=== PATIENT | female | born 1930 | race Caucasian/White ===

== ENCOUNTER 2017-09-11 10:11 | Inpatient (IN) | payer MEDICARE, BC, MEDICAID ==
[~2017-09-11] VITALS: Ht 162.6 cm; Wt 54.4 kg
[2017-09-11] VITALS (13 sets, daily range): BP systolic 89–125; BP diastolic 46–73
--- NOTE | 2017-09-11 10:23 | ER Report ---
History and Physical Time Seen By MD: 10:19 HPI/ROS CHIEF COMPLAINT: fall, left hip pain HISTORY OF PRESENT ILLNESS: This is an 87 year old female from [facility]. A staff member accidentally ran into her, knocking her over. Fell onto left side. Having left sided hip and pelvic pain. Denies any other pain. Says she can feel her leg and move her foot and toes. Movement of the hip/leg causes more pain. She denies any head, neck or back pain. She is not short of breath. She has no chest pain. She has no pain in the upper extremities. REVIEW OF SYSTEMS: Respiratory: No cough, no dyspnea. Cardiovascular: No chest pain, no palpitations. Gastrointestinal: No vomiting, no abdominal pain. Genitourinary: No burning or pain with urination. Musculoskeletal: As above. Allergies: Coded Allergies: Penicillins (Verified Allergy, Severe, 09/11/17) Sulfa (Sulfonamide Antibiotics) (Verified Allergy, Severe, 09/11/17) simvastatin (Verified Allergy, Severe, 09/11/17) Home Meds Reported Medications Magnesium Hydroxide (MILK OF MAGNESIA) 400 Mg/5 Ml Oral.susp, 30 ML PO PRN, BOTTLE NOT TO EXCEED 60 ML/DAY 09/11/17 Alprazolam (XANAX) 0.5 Mg Tablet, 1 TAB PO QPM, TAB 09/11/17 Gabapentin (GABAPENTIN) 300 Mg Capsule, 300 MG PO BID, CAPSULE 09/11/17 Acetaminophen (TYLENOL) 325 Mg Tablet, 2 TAB PO BID Y for PAIN, TAB 09/11/17 Levothyroxine Sodium (LEVOTHYROXINE SODIUM) 100 Mcg Tablet, 100 MCG PO QDAY, TAB 09/11/17 Aspirin (ASPIR 81) 81 Mg Tablet.dr, 81 MG PO QDAY, TAB 09/11/17 Past Medical/Surgical History DO NOT RESUSCITATE, DO NOT INTUBATE Past history of Type 2 diabetes, metabolic syndrome, hyperlipidemia, peripheral vascular disease, hypothyroidism, gout, neuropathy, dementia Reviewed Nurses Notes: Yes Smoking Status: Former Smoker Constitutional Vital Sign - Last 24 Hours 09/11/17 09/11/17 09/11/17 09/11/17 10:19 10:26 10:26 10:30 Temp 98.0 Pulse 64 64 Resp 18 B/P (MAP) 145/72 (96) 145/72 110/59 (76) Pulse Ox 95 95 O2 Delivery Nasal Cannula 09/11/17 09/11/17 09/11/17 09/11/17 10:41 10:56 11:00 11:11 Pulse 60 60 56 B/P (MAP) 121/74 (90) Pulse Ox 93 92 93 09/11/17 09/11/17 09/11/17 09/11/17 11:16 11:30 11:31 11:36 Pulse 61 59 64 B/P (MAP) 110/64 (79) Pulse Ox 91 91 92 09/11/17 11:51 Pulse 55 Pulse Ox 92 Physical Exam General Appearance: The patient is alert. No acute distress. Non-toxic in appearance. Eyes: Pupils are equal, round. Reactive to light. No pallor, injection or icterus. Extraocular movements are intact. ENT: Mucous membranes are moist. Normal oral mucosa. Posterior oropharynx is normal. Neck: Supple and non tender. Respiratory: Lungs are clear to auscultation. Cardiovascular: Regular rate and rhythm. No murmurs, gallops or rubs. Normal capillary refill. Gastrointestinal: Abdomen is soft and non tender. Nondistended. Neurological: Alert and oriented x3. No focal neurologic deficits, normal sensation in the left leg. Can move the toes and foot. Trying to move the hip causes pain. Skin: Warm and dry. No rashes. Musculoskeletal: Tender to palpation over the left hip anteriorly, laterally and posteriorly. T-pod pelvic binder in place. DIFFERENTIAL DIAGNOSIS: After history and physical exam, differential diagnosis was considered for an 87 year old female with fall, left hip pain and concern for hip fracture. Medical Decision Making Data Points Result Diagram: 09/11/17 1015 09/11/17 1015 Laboratory Hematology Test 09/11/17 10:15 Red Blood Count 5.09 M/uL (4.17-5.56) Mean Corpuscular Volume 92.9 fL (80.0-96.0) Mean Corpuscular Hemoglobin 31.4 pg (26.0-33.0) Mean Corpuscular Hemoglobin Concent 33.8 g/dL (32.0-36.0) Red Cell Distribution Width 13.7 % (11.5-14.5) Mean Platelet Volume 8.5 fL (7.2-11.1) Neutrophils (%) (Auto) 70.1 % (39.4-72.5) Lymphocytes (%) (Auto) 21.7 % (17.6-49.6) Monocytes (%) (Auto) 7.2 % (4.1-12.4) Eosinophils (%) (Auto) 0.6 % (0.4-6.7) Basophils (%) (Auto) 0.4 % (0.3-1.4) Nucleated RBC Relative Count (auto) 0.0 /100WBC Neutrophils # (Auto) 5.1 K/uL (2.0-7.4) Lymphocytes # (Auto) 1.6 K/uL (1.3-3.6) Monocytes # (Auto) 0.5 K/uL (0.3-1.0) Eosinophils # (Auto) 0.0 K/uL (0.0-0.5) Basophils # (Auto) 0.0 K/uL (0.0-0.1) Nucleated RBC Absolute Count (auto) 0.00 K/uL Sodium Level 136 mmol/L (137-145) Potassium Level 4.2 mmol/L (3.5-5.0) Chloride Level 103 mmol/L (98-107) Carbon Dioxide Level 23 mmol/L (22-31) Blood Urea Nitrogen 12 mg/dl (7-18) Creatinine 0.70 mg/dl (0.52-1.04) Glomerular Filtration Rate Calc > 60.0 Random Glucose 175 mg/dl (75-110) Calcium Level 9.4 mg/dl (8.4-10.2) Total Bilirubin 0.5 mg/dl (0.2-1.3) Aspartate Amino Transf (AST/SGOT) 28 U/L (0-35) Alanine Aminotransferase (ALT/SGPT) 29 U/L (0-56) Alkaline Phosphatase 55 U/L (0-126) Total Protein 6.9 gm/dl (6.3-8.2) Albumin 3.6 g/dl (3.5-5.0) Chemistry Test 09/11/17 10:15 White Blood Count 7.3 k/uL (4.5-11.0) Red Blood Count 5.09 M/uL (4.17-5.56) Hemoglobin 16.0 g/dL (12.0-16.0) Hematocrit 47.3 % (34.0-47.0) Mean Corpuscular Volume 92.9 fL (80.0-96.0) Mean Corpuscular Hemoglobin 31.4 pg (26.0-33.0) Mean Corpuscular Hemoglobin Concent 33.8 g/dL (32.0-36.0) Red Cell Distribution Width 13.7 % (11.5-14.5) Platelet Count 197 K/uL (150-450) Mean Platelet Volume 8.5 fL (7.2-11.1) Neutrophils (%) (Auto) 70.1 % (39.4-72.5) Lymphocytes (%) (Auto) 21.7 % (17.6-49.6) Monocytes (%) (Auto) 7.2 % (4.1-12.4) Eosinophils (%) (Auto) 0.6 % (0.4-6.7) Basophils (%) (Auto) 0.4 % (0.3-1.4) Nucleated RBC Relative Count (auto) 0.0 /100WBC Neutrophils # (Auto) 5.1 K/uL (2.0-7.4) Lymphocytes # (Auto) 1.6 K/uL (1.3-3.6) Monocytes # (Auto) 0.5 K/uL (0.3-1.0) Eosinophils # (Auto) 0.0 K/uL (0.0-0.5) Basophils # (Auto) 0.0 K/uL (0.0-0.1) Nucleated RBC Absolute Count (auto) 0.00 K/uL Glomerular Filtration Rate Calc > 60.0 Calcium Level 9.4 mg/dl (8.4-10.2) Total Bilirubin 0.5 mg/dl (0.2-1.3) Aspartate Amino Transf (AST/SGOT) 28 U/L (0-35) Alanine Aminotransferase (ALT/SGPT) 29 U/L (0-56) Alkaline Phosphatase 55 U/L (0-126) Total Protein 6.9 gm/dl (6.3-8.2) Albumin 3.6 g/dl (3.5-5.0) EKG/Imaging EKG Interpretation 12 lead EKG: Rhythm: Bradycardia, first-degree AV block [place]: Left axis deviation, left atrial enlargement QRS: Low voltage throughout ST segments: No ST elevation or depression. Normal appearing T waves. Imaging EXAMINATION: Pelvis radiograph single view HISTORY: Fall, left hip and pelvis pain. COMPARISON: None. FINDINGS: A single AP supine view of the pelvis is obtained. Bones: Bony structures are osteopenic. There is an acute, impacted fracture of the left mid femoral neck. Degenerative changes of the lumbar spine. Joint spaces: Negative. Hardware: None. Alignment: Normal. Soft tissues: Mild atherosclerotic calcifications. IMPRESSION: Acute, impacted fracture of the left mid femoral neck. Report Dictated By: Irasema Negro MD at 09/11/2017 10:58 AM EXAMINATION: Portable chest radiograph single view at 1041 hours HISTORY: Fall, left hip and pelvis pain. COMPARISON: None. FINDINGS: A single portable AP view of the chest is obtained. Lines/tubes: None. Lungs/pleura: No focal consolidation or pleural effusion. Heart: Negative. Mediastinum: Atherosclerotic calcifications of the aorta. Bony structures/body wall: Negative. IMPRESSION: No radiographic evidence of acute cardiopulmonary disease. Report Dictated By: Irasema Negro MD at 09/11/2017 11:00 AM ED Course/Re-evaluation Clinical Indication for ER IV: IV Access ED Course The patient did not need any pain medications at my initial evaluation. Pain was well controlled as long as she did not move the hip. Imaging shows a femoral neck fracture. I was able to contact the patient's daughter who is going to be coming here to [place] from [place]. I discussed the case with Dr. Velez, orthopedic surgery, and with Dr. Mark, hospitalist. Dr. Mark will admit and do a medical evaluation for clearance for surgery. The patient will remain NPO at this time. The patient's daughter, Bina Osborne, requested that if possible trying to get rehab arranged in [place] would be helpful for her as she works in [place] [employer] which is starting it's session so travel to and from [place] would be difficult. I passed this along to Dr. Mark and to Dr. Velez and the nursing staff. Decision to Disposition Date: Sep 11, 2017 Decision to Disposition Time: 11:46 Depart Departure Latest Vital Signs Vital Signs Date Time Temp Pulse Resp B/P (MAP) Pulse Ox O2 Delivery O2 Flow Rate FiO2 09/11/17 11:51 55 92 09/11/17 11:30 110/64 (79) 09/11/17 10:26 98.0 18 Nasal Cannula Impression: Primary Impression: Fracture of femoral neck, left, closed Condition: Condition Unchanged Disposition: Admitted from ER Problem Qualifiers Primary Impression: Fracture of femoral neck, left, closed Encounter type: initial encounter Qualified Codes: S72.002A - Fracture of unspecified part of neck of left femur, initial encounter for closed fracture ERNESTO WESLEY MD Sep 11, 2017 10:23
[2017-09-11 10:41] LABS: PLATELET COUNT, AUTOMATED 197 K/uL (150-450)
[2017-09-11] MEDS ORDERED: ASPI-1471 PO (10:43)
[2017-09-11] MEDS ORDERED: ACET-1966 PO (10:44)
[2017-09-11] MEDS ORDERED: LEVO-3 PO (10:44)
[2017-09-11] MEDS ORDERED: GABA-549 PO (10:45)
[2017-09-11] MEDS ORDERED: ALPR-429 PO (10:46)
--- NOTE | 2017-09-11 11:02 | EKG ---
[place] [facility] [place] TERA ALDRICH : [id number] MR: [id number] V: [id number] EXAM DATE: ORDERING PHYSICIAN: ERNESTO WESLEY TECHNOLOGIST: REBECCA Lares Reason : PREOP Blood Pressure : / mmHG Vent. Rate : 056 BPM Atrial Rate : 056 BPM P-R Int : 216 ms QRS Dur : 076 ms QT Int : 412 ms P-R-T Axes : 065 -62 057 degrees QTc Int : 397 ms Sinus bradycardia with 1st degree AV block Possible Left atrial enlargement Left axis deviation Low voltage QRS Possible Lateral infarct , age undetermined Abnormal ECG No previous ECGs available Confirmed by CISCO ARIAS ([id number]) on 09/12/2017 8:57:12 AM Referred By: MARYJANE Confirmed By:CISCO ARIAS
--- NOTE | 2017-09-11 11:04 | RADIOLOGY IMAGING REPORT ---
FACILITY: [facility] - [place] PATIENT NAME: Vivienne Barajas : 1930 MR: [id number] V: [id number] EXAM DATE: ORDERING PHYSICIAN: ERNESTO WESLEY TECHNOLOGIST: Location: [facility] Patient: Vivienne Barajas : 1930 Visit/Account:[id number] Date of Sevice: 09/11/2017 EXAMINATION: Pelvis radiograph single view HISTORY: Fall, left hip and pelvis pain. COMPARISON: None. FINDINGS: A single AP supine view of the pelvis is obtained. Bones: Bony structures are osteopenic. There is an acute, impacted fracture of the left mid femoral neck. Degenerative changes of the lumbar spine. Joint spaces: Negative. Hardware: None. Alignment: Normal. Soft tissues: Mild atherosclerotic calcifications. IMPRESSION: Acute, impacted fracture of the left mid femoral neck. Report Dictated By: Irasema Negro MD at 09/11/2017 10:58 AM Report E-Signed By: Irasema Negro MD at 09/11/2017 11:00 AM WSN:[email or web address]
--- NOTE | 2017-09-11 11:05 | RADIOLOGY IMAGING REPORT ---
FACILITY: [facility] PATIENT NAME: Vivienne Barajas : 1930 MR: [id number] V: [id number] EXAM DATE: ORDERING PHYSICIAN: ERNESTO WESLEY TECHNOLOGIST: Location: [facility] - [place] Patient: Vivienne Barajas : 1930 Visit/Account:[id number] Date of Sevice: 09/11/2017 EXAMINATION: Portable chest radiograph single view at 1041 hours HISTORY: Fall, left hip and pelvis pain. COMPARISON: None. FINDINGS: A single portable AP view of the chest is obtained. Lines/tubes: None. Lungs/pleura: No focal consolidation or pleural effusion. Heart: Negative. Mediastinum: Atherosclerotic calcifications of the aorta. Bony structures/body wall: Negative. IMPRESSION: No radiographic evidence of acute cardiopulmonary disease. Report Dictated By: Irasema Negro MD at 09/11/2017 11:00 AM Report E-Signed By: Irasema Negro MD at 09/11/2017 11:01 AM WSN:[id number]
[2017-09-11] MEDS ORDERED: MOM PO (12:52)
[2017-09-11] MEDS ORDERED: INSULIN HUMAN REGULAR SLIDING SCALE SC PRN (13:45)
[2017-09-11] MEDS ORDERED: ONDANSETRON 4 MG/2 ML VIAL IVP PRN ×2 (13:50→16:50)
[2017-09-11] MEDS ORDERED: MORPHINE 2 MG/ML SYR IVP PRN (13:50)
[2017-09-11] MEDS ORDERED: NS(*) 0.9% 1000 ML BAG 1,000 ML IV PRN ×2 (13:50→22:20)
[2017-09-11] MEDS ORDERED: FAMOTIDINE 20 MG/50 ML PREMIX IVPB ONE (14:00)
[2017-09-11] MEDS ORDERED: NORMOSOL R SOLN(*) 1000 ML BAG 1,000 ML IV PRN (14:00)
--- NOTE | 2017-09-11 14:09 | History & Physical ---
History of Present Illness Chief Complaint s/p fall with left hip pain History of Present Illness is an 87 year old female from [facility]. She has PMH of DM -II, Dysmetabolic Syndrome, Dyslipidemia, PVD s/p LE stent in the remote past, Hypothyroidism on Synthroid, Gout, Mild Dementia, Diabetic Neuropathy on Gabapentin and Colon Cancer s/p Colon Resection, Hysterectomy and Appendectomy. She is a former smoker. She is allergic to PCN with rash, Sulfa and Zocor. She is DNR and her PCP is in [place], Dr. Khan. She presented to the ER at [facility] after a staff member of [facility] accidentally ran into her, knocking her over. She fell onto her left side and having left sided hip and pelvic pain. Denies any other pain. Says she can feel her leg and move her foot and toes. Movement of the hip/leg causes more pain. She denies any head, neck or back pain. She is not short of breath. She has no chest pain. She has no pain in the upper extremities. She denies any chest pain or palpitations. I discussed the case with ER-MD and admitted the patient for further evaluation and management. I also have discussed the case with Dr. Bah, Orthopedic and plan for surgical repair today. She is clinically and hemodynamically stable. Her electrolytes and H/H are WNL. History Home Meds Reported Medications Magnesium Hydroxide (MILK OF MAGNESIA) 400 Mg/5 Ml Oral.susp, 30 ML PO PRN, BOTTLE NOT TO EXCEED 60 ML/DAY 09/11/17 Alprazolam (XANAX) 0.5 Mg Tablet, 1 TAB PO QPM, TAB 09/11/17 Gabapentin (GABAPENTIN) 300 Mg Capsule, 300 MG PO BID, CAPSULE 09/11/17 Acetaminophen (TYLENOL) 325 Mg Tablet, 2 TAB PO BID Y for PAIN, TAB 09/11/17 Levothyroxine Sodium (LEVOTHYROXINE SODIUM) 100 Mcg Tablet, 100 MCG PO QDAY, TAB 09/11/17 Aspirin (ASPIR 81) 81 Mg Tablet.dr, 81 MG PO QDAY, TAB 09/11/17 Allergies: Coded Allergies: Penicillins (Verified Allergy, Severe, 09/11/17) Sulfa (Sulfonamide Antibiotics) (Verified Allergy, Severe, 09/11/17) simvastatin (Verified Allergy, Severe, 09/11/17) Smoking Status: Former Smoker Hx Alcohol Use: No Hx Substance Use Disorder: No Review of Systems Constitutional: No Fever, No Weight Loss, No Weight Gain, No Chills, No Night Sweats Neurological: No Syncope, No Confusion, No Weakness, No Dizziness, No Slurred Speech Eyes: No Vision Change, No Loss of Vision ENT: No Hearing Loss, No Sinus Congestion, No Sore Throat, No Tinnitus Cardiovascular: No Chest Pain, No Palpitations Respiratory: No Shortness of Breath, No Cough, No Wheezing Gastrointestinal: No Nausea, No Vomiting, No Diarrhea, No Dysphagia, No Constipation, No Abdominal Pain Genitourinary: No Dysuria, No Hematuria, No Urinary Incontinence Musculoskeletal: Pain, Impaired Mobility, No Sprain, No Strain Psychiatric: Anxiety, No Depression Exam Vital Signs Vital Signs Date Time Temp Pulse Resp B/P (MAP) Pulse Ox O2 Delivery O2 Flow Rate FiO2 09/11/17 12:35 97.7 58 20 118/62 (80) 93 Nasal Cannula 2.0 General Appearance: Alert, Awake, No Acute Distress, Afebrile Neuro: No Gross deficits Eyes: PERRLA ENT: Normal Neck: No Masses Cardiovascular: Normal Rhythm & Peripheral Pulses, Other (Paul) Respiratory: No Respiratory Distress Chest: No Masses GI: Abd Soft and Non-Tender Extremities: Soft and Non Tender, Warm, Pulses, Perfused, Other (LLE with tenderness on ROM) Integumentary: Skin Intact without Lesion / Mass Psych: Alert & Oriented X3, Appropriate Mood & Affect Medical Decision Making Data Points Result Diagram: 09/11/17 1015 09/11/17 1015 Assessment and Plan Problems: (1) Fracture of femoral neck, left, closed Status: Acute Assessment & Plan: I will admit the patient in med/surg floor for further evaluation and management She is medically cleared for surgical procedure I will keep her NPO for surgical procedure. I will use MSO4 for her pain Tylenol and Zofran for symptomatic management I will resume her home meds after the surgical procedure I will use Aspirin 325mg po q daily after the surgery for DVTP Protonix 40mg po qd for GIP (2) DM (diabetes mellitus) type II controlled peripheral vascular disorder Status: Chronic Assessment & Plan: I will keep her on Regular Insulin coverage by moderate sliding scale Accuchecks q AC and HS Central Venous Access Medical Necessity for Access: IV Access, Medication Administration Time Spent on Plan of Care: < 30 min Copies to: ANDREW BAH MD Venous Thromboembolism VTE Risk Physician Assess for VTE Risk: Yes Patient's VTE Risk: Low VTE Diagnostic Test 2 Days Prior to Admit: No Antithrombotics Is Pt On Any Antithrombotics?: No Exam Sepsis Risk: No Definite Risk Problem Qualifiers (1) Fracture of femoral neck, left, closed: Encounter type: initial encounter Qualified Codes: S72.002A - Fracture of unspecified part of neck of left femur, initial encounter for closed fracture ELIZABETH GLEASON MD Sep 11, 2017 14:09
[2017-09-11] MEDS ORDERED: ceFAZolin(*) 1 GM VIAL 1 GM in NS(*) 0.9% 100 ML ADDVANT BAG 100 ML IV ONE (14:30)
[2017-09-11] MEDS ORDERED: PROPOFOL EMUL(*) 10MG/ML 20 ML 20 ML ONE (14:40)
[2017-09-11] MEDS ORDERED: MIDAZOLAM 2 MG/2 ML VIAL ONE (14:40)
[2017-09-11] MEDS ORDERED: ONDANSETRON 4 MG/2 ML VIAL ONE (14:40)
[2017-09-11] MEDS ORDERED: LIDOCAINE MPF 1% 5 ML VIAL ONE (14:40)
[2017-09-11] MEDS ORDERED: fentaNYL CITR 100 MCG/2 ML AMP ONE ×2 (14:40→17:12)
[2017-09-11] MEDS ORDERED: DEXAMETHASONE SOD PHOS 10MG/ML ONE (14:44)
[2017-09-11] MEDS ORDERED: ROPIVACAINE 0.2% 20 ML VIAL ONE (14:44)
[2017-09-11] MEDS ORDERED: LIDO/EPI 2% MDV 1:100,000 20ML INFIL ONE (14:48)
[2017-09-11] MEDS ORDERED: SUGAMMADEX SOD 200 MG/2 ML SDV ONE (15:21)
[2017-09-11] MEDS ORDERED: diphenhydrAMINE 25 MG CAP PO PRN (16:50)
[2017-09-11] MEDS ORDERED: PROMETHAZINE HCL(*) 25 MG SUPP PR PRN (16:50)
[2017-09-11] MEDS ORDERED: BISACODYL 10 MG SUPP PR PRN (16:50)
[2017-09-11] MEDS ORDERED: LR 1000 ML BAG 1000 ML IV PRN (16:50)
[2017-09-11] MEDS ORDERED: MAGNESIUM HYDROXIDE* 30ML UDCP PO PRN (16:50)
[2017-09-11] MEDS ORDERED: FLUSH 10 ML SYR IVP PRN (16:50)
[2017-09-11] MEDS ORDERED: PROMETHAZINE 25 MG/ML 1 ML AMP IVP PRN (16:50)
[2017-09-11] MEDS ORDERED: diphenhydrAMINE 50 MG/ML VIAL IVP PRN (16:50)
[2017-09-11] MEDS ORDERED: MAGNESIUM CITRATE 300 ML BTL PO PRN (16:50)
[2017-09-11] MEDS ORDERED: ZOLPIDEM TARTRATE 5 MG TAB PO PRN (16:50)
[2017-09-11] MEDS: ALPRAZolam 0.5 MG TAB PO SCH (20:32)
[2017-09-11] MEDS: GABAPENTIN 300 MG CAP PO SCH (20:33)
--- NOTE | 2017-09-11 20:57 | RADIOLOGY IMAGING REPORT ---
FACILITY: [facility] - [place] PATIENT NAME: Vivienne Barajas : 1930 MR: [id number] V: [id number] EXAM DATE: ORDERING PHYSICIAN: ANDREW BAH TECHNOLOGIST: Location: [facility] Patient: Vivienne Barajas : 1930 Visit/Account:[id number] Date of Sevice: 09/11/2017 EXAMINATION: Intraoperative fluoroscopic images of the left hip. HISTORY: Fracture COMPARISON: Pelvis radiograph of earlier today. FINDINGS: Fluoroscopic images of the left hip were obtained in the OR during orthopedic surgery. Images demonstrate placement of 3 cannulated screws along the left femoral neck, traversing a femoral neck fracture. Fluoroscopy time: 122.1 seconds Images obtained: 6 IMPRESSION: Fluoroscopy was utilized during orthopedic surgery with pin fixation across the left femoral neck fra cture. Please see the separate operative report for further description of findings. Report Dictated By: Jovani Dick MD at 09/11/2017 8:50 PM Report E-Signed By: Jovani Dick MD at 09/11/2017 8:53 PM WSN:[id number]
[2017-09-11] MEDS: ceFAZolin(*) 1 GM VIAL 1 GM in NS(*) 0.9% 100 ML ADDVANT BAG 100 ML IVPB SCH (22:41)
[2017-09-12] VITALS (25 sets, daily range): BP systolic 87–123; BP diastolic 43–85; Ht 162.6 cm; Wt 54.4 kg
[2017-09-12] MEDS: HYDROmorphone HCL 2 MG/ML SDV IVP PRN (03:01)
[2017-09-12] MEDS: KETOROLAC 30 MG/ML VIAL IVP PRN ×3 (03:08→20:09)
[2017-09-12 05:51] LABS: PLATELET COUNT, AUTOMATED 148 K/uL (150-450)
[2017-09-12] MEDS: LEVOTHYROXINE SOD 0.1 MG TAB PO SCH (06:54)
[2017-09-12] MEDS: ceFAZolin(*) 1 GM VIAL 1 GM in NS(*) 0.9% 100 ML ADDVANT BAG 100 ML IVPB SCH ×2 (06:55→15:09)
--- NOTE | 2017-09-12 07:16 | OPERATIVE REPORT 1 ---
EVENT DATE: September 11, 2017 SURGEON: Ned Velez MD ANESTHESIOLOGIST: Adis Morgan MD ANESTHESIA: General with a hip block. PREOPERATIVE DIAGNOSIS Left femoral neck fracture, displaced. POSTOPERATIVE DIAGNOSIS Left femoral neck fracture, displaced. PROCEDURE PERFORMED Open reduction and internal fixation, left hip. ESTIMATED BLOOD LOSS About 50 mL. INDICATIONS FOR SURGERY Left femoral neck fracture. After a long discussion with the family about either a hemiarthroplasty or ORIF, they wanted to do the most minimally invasive procedure on her to get her pain free but not fully ambulatory. They just wanted a small surgery to decrease her pain due to her age and her mental status. Therefore, they chose the percutaneous pinning, which I think was acceptable. OPERATION Patient was brought to the operating room, placed on a traction bed with her left lower extremity in traction. Her right leg was placed in flexion and abduction. She was prepped and draped using [place] and a large shower drape. Once that was done, we brought fluoroscopy in. On AP and lateral, we spent a significant amount of time with internal rotation, abduction and distraction to obtain what looked to be very close to an anatomical reduction. Once we had that, under fluoroscopy I made a small incision over the greater trochanter about 3 cm in length. Skin was incised with a 15 blade down to the subcutaneous tissue. Subcutaneous tissue was bluntly dissected down to the fascia. Fascia was then incised. A Weitlaner was then placed across the fascia. A subvastus approach was then done, opening up the fascia of the vastus and going subvastus. At this point, I then placed a retractor anteriorly. I placed a large K wire pin into the greater trochanter and under fluoroscopy, both on AP and lateral, I placed my first pin, trying to get as inferior and as posterior as possible to get a good stabilization of the posterior medial fragment. Once that was in, I then placed two more pins. It was very difficult to get the pins in a perfect triangle. We did get a nice posterior to superior spread of the pins. Under fluoroscopy, we had good reduction anatomically, AP and lateral. At this point, I drilled all of the K wires and then placed 6.5 cannulated screws across it. Due to her size, we decided to go with 6.5 instead of 7.3, and I was able to get those three screws in without any difficulty, getting excellent compression. All of the K wires were removed. Three screws were partially threaded. Cannulated screws were placed without any difficulty and great compression. Once we had the screws in and all the K wires removed, we actually removed the traction and saw that there was very little collapse, and we tightened the screws as we needed to. At this point, we closed using 3-0 Vicryl in a running stitch manner over the IT band and then 3-0 Vicryl subcuticular with jeni, Adaptic and a big dressing. Patient went to recovery with no complications. LEYLA
[2017-09-12] MEDS: PANTOPRAZOLE SOD 40 MG TABEC PO SCH (08:46)
[2017-09-12] MEDS: ASPIRIN 325 MG TAB PO SCH (08:46)
[2017-09-12] MEDS: GABAPENTIN 300 MG CAP PO SCH ×2 (08:46→20:26)
--- NOTE | 2017-09-12 09:11 | Hospitalist Progress Note ---
Subjective Progress Notes Subjective This patient was admitted for a hip fracture. She underwent operative repair yesterday. Patient Complains of: Cardiovascular: No: Chest Pain Respiratory: No: Shortness of Breath Physical Exam Vital Signs Date Time Temp Pulse Resp B/P (MAP) Pulse Ox O2 Delivery O2 Flow Rate FiO2 09/12/17 08:00 65 101/64 (76) 94 Nasal Cannula 2.5 09/12/17 07:05 96.5 09/11/17 20:28 18 Intake and Output 09/13/17 07:00 Intake Total 1046 ml Balance 1046 ml IV Total 1046 ml Cardiovascular: Regular Rate and Rhythm Respiratory: Clear to Auscultation Result Diagram: 09/12/17 0525 09/11/17 1015 Assessment and Plan Problems: (1) Fracture of femoral neck, left, closed Status: Acute Assessment & Plan: I will admit the patient in med/surg floor for further evaluation and management She is medically cleared for surgical procedure I will keep her NPO for surgical procedure. I will use MSO4 for her pain Tylenol and Zofran for symptomatic management I will resume her home meds after the surgical procedure I will use Aspirin 325mg po q daily after the surgery for DVTP Protonix 40mg po qd for GIP She is on aspirin prophylaxis. Physical and occupational therapy consults are pending. She will likely discharge to rehab in [place]. (2) DM (diabetes mellitus) type II controlled peripheral vascular disorder Status: Chronic Assessment & Plan: She is not on chronic treatment. We currently have her on sliding scale level #2. Central Venous Access Medical Necessity for Access: IV Access, Medication Administration Exam Sepsis Risk: No Definite Risk Problem Qualifiers (1) Fracture of femoral neck, left, closed: Encounter type: initial encounter Qualified Codes: S72.002A - Fracture of unspecified part of neck of left femur, initial encounter for closed fracture CISCO ARIAS DO Sep 12, 2017 09:11
[2017-09-12] MEDS: ALPRAZolam 0.5 MG TAB PO SCH (20:26)
[2017-09-13 01:00] VITALS: BP 123/67
[2017-09-13] MEDS: HYDROmorphone HCL 2 MG/ML SDV IVP PRN (01:23)
[2017-09-13 05:47] LABS: PLATELET COUNT, AUTOMATED 124 K/uL (150-450)
[2017-09-13] MEDS: LEVOTHYROXINE SOD 0.1 MG TAB PO SCH (06:00)
[2017-09-13] MEDS: GABAPENTIN 300 MG CAP PO SCH ×2 (09:42→20:16)
[2017-09-13] MEDS: ASPIRIN 325 MG TAB PO SCH (09:42)
[2017-09-13] MEDS: PANTOPRAZOLE SOD 40 MG TABEC PO SCH (09:42)
[2017-09-13 09:50] VITALS: BP 131/76
[2017-09-13 11:31] VITALS: BP 102/57
[2017-09-13] MEDS: ACETAMINOPHEN 325 MG TAB PO PRN ×2 (12:13→18:32)
--- NOTE | 2017-09-13 12:40 | Hospitalist Progress Note ---
Subjective Progress Notes Subjective is an 87 year old female from [facility]. She has PMH of DM -II, Dysmetabolic Syndrome, Dyslipidemia, PVD s/p LE stent in the remote past, Hypothyroidism on Synthroid, Gout, Mild Dementia, Diabetic Neuropathy on Gabapentin and Colon Cancer s/p Colon Resection, Hysterectomy and Appendectomy. She is a former smoker. She is allergic to PCN with rash, Sulfa and Zocor. She is DNR and her PCP is in [place], Dr. Khan. She presented to the ER at [facility] after a staff member of [facility] accidentally ran into her, knocking her over. She fell onto her left side and having left sided hip and pelvic pain. Denies any other pain. Says she can feel her leg and move her foot and toes. Movement of the hip/leg causes more pain. She denies any head, neck or back pain. She is not short of breath. She has no chest pain. She has no pain in the upper extremities. She denies any chest pain or palpitations. I discussed the case with ER-MD and admitted the patient for further evaluation and management. I also have discussed the case with Dr. Bah, Orthopedic and plan for surgical repair today. She is clinically and hemodynamically stable. Her electrolytes and H/H are WNL. 09/13: She is doing better and receiving OT/PT. She is hemodynamically stable and scheduled to go back to [facility] in am. Patient Complains of: Neurological: Confusion, Weakness, No: Syncope Cardiovascular: No: Chest Pain, Palpitations Respiratory: No: Cough, Shortness of Breath Gastrointestinal: No Nausea, No Vomiting Genitourinary: No Dysuria, No Hematuria Musculoskeletal: Pain (mild L-hip pain), Impaired Mobility, No: Sprain, Strain Physical Exam Vital Signs Date Time Temp Pulse Resp B/P (MAP) Pulse Ox O2 Delivery O2 Flow Rate FiO2 09/13/17 11:31 98.6 70 102/57 (72) 90 Nasal Cannula 2.0 09/13/17 09:50 18 Intake and Output 09/14/17 07:00 Intake Total 350 ml Balance 350 ml Intake Oral 350 ml # Voids 2 General Appearance: Alert, Awake, No Acute Distress, Afebrile Neuro: No Gross deficits Eyes: PERRLA ENT: Normal Neck: No Masses Cardiovascular: Normal Rhythm & Peripheral Pulses Respiratory: No Respiratory Distress GI: Soft and Non-Tender Extremities: Soft and Non Tender, Other (LLE with tenderness) Psych: Appropriate Mood & Affect Result Diagram: 09/13/17 0534 09/11/17 1015 Assessment and Plan Problems: (1) Fracture of femoral neck, left, closed Status: Acute Assessment & Plan: I will admit the patient in med/surg floor for further evaluation and management She is medically cleared for surgical procedure I will keep her NPO for surgical procedure. I will use MSO4 for her pain Tylenol and Zofran for symptomatic management I will resume her home meds after the surgical procedure I will use Aspirin 325mg po q daily after the surgery for DVTP Protonix 40mg po qd for GIP She is on aspirin prophylaxis. Physical and occupational therapy consults are pending. She will likely discharge to rehab in [place]. 09/13: She will continue to get her OT/PT and scheduled to go back to [facility] in am (2) DM (diabetes mellitus) type II controlled peripheral vascular disorder Status: Chronic Assessment & Plan: She is not on chronic treatment. We currently have her on sliding scale level #2. 09/13: I will continue the same management Central Venous Access Medical Necessity for Access: IV Access, Medication Administration Time Spent on Plan of Care: < 30 min Copies to: ANDREW BAH MD; [facility] Exam Sepsis Risk: No Definite Risk Problem Qualifiers (1) Fracture of femoral neck, left, closed: Encounter type: initial encounter Qualified Codes: S72.002A - Fracture of unspecified part of neck of left femur, initial encounter for closed fracture ELIZABETH GLEASON MD Sep 13, 2017 12:40
[2017-09-13 15:37] VITALS: BP 90/49
[2017-09-13] MEDS: KETOROLAC 30 MG/ML VIAL IVP PRN (20:16)
[2017-09-13] MEDS: ALPRAZolam 0.5 MG TAB PO SCH (20:16)
[2017-09-14 05:30] VITALS: BP 121/88
[2017-09-14] MEDS: LEVOTHYROXINE SOD 0.1 MG TAB PO SCH (05:32)
[2017-09-14 07:10] VITALS: BP 125/59
[2017-09-14] MEDS: PANTOPRAZOLE SOD 40 MG TABEC PO SCH (08:22)
[2017-09-14] MEDS: GABAPENTIN 300 MG CAP PO SCH (08:22)
[2017-09-14] MEDS: ASPIRIN 325 MG TAB PO SCH (08:22)
--- NOTE | 2017-09-14 10:25 | Hospitalist Depart ---
Discharge Summary Reason for Hosp/Final Diag: (1) Fracture of femoral neck, left, closed Status: Acute Hospital Course & Plan: is an 87 year old female from [facility]. She has PMH of DM-II, Dysmetabolic Syndrome, Dyslipidemia, PVD s/p LE stent in the remote past, Hypothyroidism on Synthroid, Gout, Mild Dementia, Diabetic Neuropathy on Gabapentin and Colon Cancer s/p Colon Resection, Hysterectomy and Appendectomy. She is a former smoker. She is allergic to PCN with rash, Sulfa and Zocor. She is DNR and her PCP is in [place], Dr. Khan. She presented to the ER at [facility] after a staff member of [facility] accidentally ran into her, knocking her over. She fell onto her left side and having left sided hip and pelvic pain. Denies any other pain. Says she can feel her leg and move her foot and toes. Movement of the hip/leg causes more pain. She denies any head , neck or back pain. She is not short of breath. She has no chest pain. She has no pain in the upper extremities. She denies any chest pain or palpitations. I discussed the case with ER-MD and admitted the patient for further evaluation and management. I also have discussed the case with Dr. Velez, Orthopedic and plan for surgical repair today. She is clinically and hemodynamically stable. Her electrolytes and H/H are WNL. Plan: I will admit the patient in med/surg floor for further evaluation and management She is medically cleared for surgical procedure I will keep her NPO for surgical procedure. I will use MSO4 for her pain Tylenol and Zofran for symptomatic management I will resume her home meds after the surgical procedure I will use Aspirin 325mg po q daily after the surgery for DVTP Protonix 40mg po qd for GIP 09/13: She is doing better and receiving OT/PT. She is hemodynamically stable and scheduled to go back to [facility] in am. 09/14: She is stable and being d/c'd today back to [facility] for Rehab. (2) DM (diabetes mellitus) type II controlled peripheral vascular disorder Status: Chronic Hospital Course & Plan: She is not on chronic treatment. We currently have her on sliding scale level #2. 09/13: I will continue the same management Departure Weight (Pounds): 120 Result Diagram: 09/14/17 0530 09/11/17 1015 Condition: Improved Discharge: Care Home PT/OT Follow Up For: PT For Strengthening Discharge Code Status: DNR Follow-Up Labs: Finger Sticks Time Spent: < 30 min Discharge Instructions Home Meds Reported Medications Magnesium Hydroxide (MILK OF MAGNESIA) 400 Mg/5 Ml Oral.susp, 30 ML PO PRN, BOTTLE NOT TO EXCEED 60 ML/DAY 09/11/17 Alprazolam (XANAX) 0.5 Mg Tablet, 1 TAB PO QPM, TAB 09/11/17 Gabapentin (GABAPENTIN) 300 Mg Capsule, 300 MG PO BID, CAPSULE 09/11/17 Acetaminophen (TYLENOL) 325 Mg Tablet, 2 TAB PO BID Y for PAIN, TAB 09/11/17 Levothyroxine Sodium (LEVOTHYROXINE SODIUM) 100 Mcg Tablet, 100 MCG PO QDAY, TAB 09/11/17 Aspirin (ASPIR 81) 81 Mg Tablet.dr, 81 MG PO QDAY, TAB 09/11/17 Diet: Regular Activity: As Tolerated Special Instructions: Use Sit to stand for all transfers per PT She should use Aspirin 325mg instead 81mg po q daily Copies to: [facility] Venous Thromboembolism Antithrombotics Is Pt On Any Antithrombotics?: No Problem Qualifiers (1) Fracture of femoral neck, left, closed: Encounter type: initial encounter Qualified Codes: S72.002A - Fracture of unspecified part of neck of left femur, initial encounter for closed fracture ELIZABETH GLEASON MD Sep 14, 2017 10:24
[2017-09-14] MEDS ORDERED: ASPI-757 PO (10:32)
[2017-09-14] MEDS ORDERED: OXYC-865 PO (10:49)
[2017-09-14 11:12] VITALS: BP 107/51
== END 2017-09-14 13:15 | DRG 482 ==
LOC: ER 10:20 → MED 11:56
PROVIDERS: ADMIT Specialist; ATTEND Specialist
PROC: 0QH706Z Insertion of Intramedullary Internal Fixation Device into Left Upper Femur, Open Approach (ICD-10-PCS; principal; 2017-09-11 14:29)
DX: S72.002A Fracture of unspecified part of neck of left femur, initial encounter for closed fracture (principal); E11.42 Type 2 diabetes mellitus with diabetic polyneuropathy; E03.9 Hypothyroidism, unspecified; W03.XXXA Other fall on same level due to collision with another person, initial encounter; F03.90 Unspecified dementia, unspecified severity, without behavioral disturbance, psychotic disturbance, mood disturbance, and anxiety; M10.9 Gout, unspecified; E88.81 Metabolic syndrome and other insulin resistance; I10 Essential (primary) hypertension; I73.9 Peripheral vascular disease, unspecified; E78.5 Hyperlipidemia, unspecified; Z79.82 Long term (current) use of aspirin; Z88.0 Allergy status to penicillin; Z66 Do not resuscitate; Z88.2 Allergy status to sulfonamides; Z88.8 Allergy status to other drugs, medicaments and biological substances; Z68.20 Body mass index [BMI] 20.0-20.9, adult; Z87.891 Personal history of nicotine dependence; Z85.038 Personal history of other malignant neoplasm of large intestine; Z90.49 Acquired absence of other specified parts of digestive tract; Z90.710 Acquired absence of both cervix and uterus; Y92.129 Unspecified place in nursing home as the place of occurrence of the external cause
CPT/HCPCS: 36415; 36416; 71045; 72170; 76000; 76942; 82040; 82247; 82310; 82374; 82435; 82565; 82947; 82948; 84075; 84132; 84155; 84295; 84450; 84460; 84520; 85014; 85018; 85025; 86850; 86900; 86901; 93005; 97161; 99285; J0690; J1100; J1170; J1885; J2001; J2250; J2270; J2405; J2704; J2795; J3010; J3490; J7030; J7050

== ENCOUNTER → 2017-09-11 | Outpatient (CLI) | payer MEDICARE, BC, MEDICAID ==
[~2017-09-11] MED LIST: ACET-1966 PO; ALPR-429 PO; ASPI-1471 PO; ASPI-757 PO; GABA-549 PO; LEVO-3 PO; MOM PO; OXYC-865 PO
[2017-09-12 10:39] VITALS: BMI 20.6
== END ==
LOC: AMB 10:00
PROVIDERS: ATTEND Nurse Practitioner
DX: M25.552 Pain in left hip (principal); W03.XXXA Other fall on same level due to collision with another person, initial encounter; Y92.128 Other place in nursing home as the place of occurrence of the external cause
CPT/HCPCS: A0425; A0427

== ENCOUNTER → 2017-12-02 | Outpatient (REF) | payer MEDICARE, BC, MEDICAID ==
[2017-09-12 10:39] VITALS: BMI 20.6
== END ==
LOC: ZZLCC 10:51
PROVIDERS: ATTEND Family Medicine
DX: Z02.9 Encounter for administrative examinations, unspecified (principal)
CPT/HCPCS: 81001; 87077; 87088; 87186

== ENCOUNTER → 2017-12-17 | Outpatient (REF) | payer MEDICARE, BC, MEDICAID ==
[2017-09-12 10:39] VITALS: BMI 20.6
== END ==
LOC: ZZLCC 12:52
PROVIDERS: ATTEND Family Medicine
DX: S91.302A Unspecified open wound, left foot, initial encounter (principal)
CPT/HCPCS: 87070; 87077; 87186

== ENCOUNTER 2019-03-31 10:37 | Emergency (ER) | payer MEDICARE, BC, MEDICAID ==
[2017-09-12 10:39] VITALS: Wt 55.3 kg
[~2019-03-31 10:37] MED LIST changes: -LEVO750T44 PO; -NITR-105 PO
--- NOTE | 2019-03-31 11:04 | ER Report ---
History and Physical Time Seen By MD: 10:59 HPI/ROS CHIEF COMPLAINT: Fall HISTORY OF PRESENT ILLNESS: Patient is an 88-year-old female here status post fall at approximately 10:00 this morning at the retirement. Patient is a poor historian but does complain of left hip pain. Patient arrived with a cervical collar in place. Patient is neurovascularly intact in the distal lower extremities and has good motor strength. Patient denies other complaints at this time. Patient is afebrile, hemodynamically stable at time of evaluation. REVIEW OF SYSTEMS: Constitutional: No fever, no chills. Eyes: No discharge. ENT: No sore throat. Cardiovascular: No chest pain, no palpitations. Respiratory: No cough, no shortness of breath. Gastrointestinal: No abdominal pain, no vomiting. Genitourinary: No hematuria. Musculoskeletal: No back pain. + Left hip pain with range of motion Skin: No rashes. Neurological: No headache. Neurovascular exam intact in the lower extremities Allergies: Coded Allergies: Penicillins (Verified Allergy, Severe, 03/31/19) Sulfa (Sulfonamide Antibiotics) (Verified Allergy, Severe, 03/31/19) simvastatin (Verified Allergy, Severe, 03/31/19) Home Meds Active Scripts Levofloxacin 750 Mg Tab (LEVAQUIN 750 MG TAB) 750 Mg Tablet, 750 MG PO QDAY for 4 Days, #4 TAB Prov:PERLITA YOU DO 03/31/19 Reported Medications Oxycodone Hcl/Acetaminophen (PERCOCET 5-325 MG TABLET) 1 Each Tablet, 1-2 EACH PO Q4-6H PRN for PAIN, TAB 09/14/17 Aspirin (ASPIRIN) 325 Mg Tablet, 325 MG PO DAILY, TAB 09/14/17 Magnesium Hydroxide (MILK OF MAGNESIA) 400 Mg/5 Ml Oral.susp, 30 ML PO PRN, BOTTLE NOT TO EXCEED 60 ML/DAY 09/11/17 Alprazolam (XANAX) 0.5 Mg Tablet, 1 TAB PO QPM, TAB 09/11/17 Gabapentin (GABAPENTIN) 300 Mg Capsule, 300 MG PO BID, CAPSULE 09/11/17 Acetaminophen (TYLENOL) 325 Mg Tablet, 2 TAB PO BID PRN for PAIN, TAB 09/11/17 Levothyroxine Sodium (LEVOTHYROXINE SODIUM) 100 Mcg Tablet, 100 MCG PO QDAY, TAB 09/11/17 Smoking Status: Former Smoker Hx Substance Use Disorder: No Hx Alcohol Use: No Constitutional Vital Sign - Last 24 Hours 03/31/19 03/31/19 03/31/19 10:58 11:04 11:38 Temp 98.0 Pulse 84 74 Resp 18 18 B/P (MAP) 113/72 111/69 (83) Pulse Ox 82 95 O2 Delivery Room Air Nasal Cannula O2 Flow Rate 2.0 2 Physical Exam General Appearance: The patient is alert, has no immediate need for airway protection and no signs of toxicity. No acute distress. Pleasantly demented Eyes: Pupils equal and round no pallor or injection. ENT, Mouth: Mucous membranes are moist. Respiratory: There are no retractions, lungs are clear to auscultation. Cardiovascular: Regular rate and rhythm. Gastrointestinal: Abdomen is soft and non tender, no masses, bowel sounds normal. Neurological: No focal neurological deficits, neurovascular exam intact in the distal left lower extremity Skin: Warm and dry, no rashes. Musculoskeletal: Neck is supple non tender. Extremities are nontender, nonswollen and have full range of motion. DIFFERENTIAL DIAGNOSIS: After history and physical exam differential diagnosis was considered for fracture, dehydration, electrolyte abnormality, infection, dislocation Medical Decision Making Data Points Result Diagram: 03/31/19 1113 03/31/19 1113 Laboratory Hematology Test 03/31/19 11:13 White Blood Count 5.3 k/uL (4.5-11.0) Red Blood Count 4.73 M/uL (4.17-5.56) Hemoglobin 15.2 g/dL (12.0-16.0) Hematocrit 44.9 % (34.0-47.0) Mean Corpuscular Volume 95.1 fL (80.0-96.0) Mean Corpuscular Hemoglobin 32.1 pg (26.0-33.0) Mean Corpuscular Hemoglobin Concent 33.8 g/dL (32.0-36.0) Red Cell Distribution Width 14.4 % (11.5-14.5) Platelet Count 210 K/uL (150-450) Mean Platelet Volume 8.1 fL (7.2-11.1) Neutrophils (%) (Auto) 64.4 % (39.4-72.5) Lymphocytes (%) (Auto) 26.6 % (17.6-49.6) Monocytes (%) (Auto) 7.7 % (4.1-12.4) Eosinophils (%) (Auto) 0.9 % (0.4-6.7) Basophils (%) (Auto) 0.4 % (0.3-1.4) Nucleated RBC Relative Count (auto) 0.3 /100WBC Neutrophils # (Auto) 3.4 K/uL (2.0-7.4) Lymphocytes # (Auto) 1.4 K/uL (1.3-3.6) Monocytes # (Auto) 0.4 K/uL (0.3-1.0) Eosinophils # (Auto) 0.0 K/uL (0.0-0.5) Basophils # (Auto) 0.0 K/uL (0.0-0.1) Nucleated RBC Absolute Count (auto) 0.01 K/uL Chemistry Test 03/31/19 11:13 Sodium Level 139 mmol/L (137-145) Potassium Level 3.4 mmol/L (3.5-5.0) Chloride Level 100 mmol/L (98-107) Carbon Dioxide Level 32 mmol/L (22-31) Blood Urea Nitrogen 14 mg/dl (7-18) Creatinine 0.60 mg/dl (0.52-1.04) Glomerular Filtration Rate Calc > 60.0 Random Glucose 123 mg/dl (75-110) Calcium Level 9.9 mg/dl (8.4-10.2) Total Bilirubin 0.7 mg/dl (0.2-1.3) Aspartate Amino Transf (AST/SGOT) 42 U/L (0-35) Alanine Aminotransferase (ALT/SGPT) 37 U/L (0-56) Alkaline Phosphatase 45 U/L (0-126) Total Protein 6.6 g/dl (6.3-8.2) Albumin 3.6 g/dl (3.5-5.0) Lipase 51 U/L (23-300) Coagulation Test 03/31/19 11:13 Prothrombin Time 13.4 seconds (12.0-14.4) Prothromb Time International Ratio 1.02 Activated Partial Thromboplast Time 35 seconds (23-35) Urinalysis Test 03/31/19 11:25 Urine Color Yellow Urine Clarity Cloudy Urine pH 7.0 pH (4.8-9.5) Urine Specific [place] 1.008 Urine Protein Negative mg/dL (NEGATIVE) Urine Glucose (UA) Negative mg/dL (NEGATIVE) Urine Ketones Negative mg/dL (NEGATIVE) Urine Blood Negative (NEGATIVE) Urine Nitrite Negative (NEGATIVE) Urine Bilirubin Negative (NEGATIVE) Urine Urobilinogen Negative mg/dL (0.2-1.9) Urine Leukocyte Esterase Moderate (NEGATIVE) Urine RBC 2 /HPF (0-2/HPF) Urine WBC 169 /HPF (0-5/HPF) Urine WBC Clumps Few /HPF Urine Squamous Epithelial Cells Moderate /LPF (NONE-FEW) Urine Bacteria Few /HPF (NONE-FEW) Urine Mucus None /HPF (NONE-FEW) Urine Yeast (Budding) Few /HPF EKG/Imaging Imaging FACILITY: [facility] [place] PATIENT NAME: Vivienne Barajas : 1930 MR: [id number] V: [id number] EXAM DATE: [id number] ORDERING PHYSICIAN: PERLITA YOU TECHNOLOGIST: Location: [facility] Patient: Vivienne Barajas : 1930 Visit/Account:[id number] Date of Sevice: 03/31/2019 EXAMINATION: CT Cervical spine without intravenous contrast HISTORY: Trauma. Patient unable to describe trauma. COMPARISON: None. TECHNIQUE: Axial images were obtained from the skull base through the upper thoracic spine without IV contrast administration. Coronal and sagittal reformatted images were obtained from the axial source data. One of the following dose optimization techniques was utilized in the performance of this exam: Automated exposure control; adjustment of the mA and/or kV according to the patient's size; or use of an iterative reconstruction technique. Specific details can be referenced in the facility's radiology CT exam operational policy. FINDINGS: Alignment: Slight anterolisthesis of C2 on C3, likely on a degenerative basis. Straightening of the cervical spine. Cranio-cervical junction: Negative. Vertebral bodies: The bones are diffusely osteopenic. No evidence of acute fracture. Posterior elements: Multilevel facet degenerative changes. No acute fracture. Hardware: None. Disc Spaces: Moderate multilevel disc degenerative changes. Soft tissues: No significant paraspinal soft tissue swelling. Calcified plaque of the carotid arteries. Visualized upper chest: Negative. IMPRESSION: No acute fracture of the cervical spine. Moderate multilevel cervical spondylosis. Osteopenia. Report Dictated By: Moe Goode, MD at 03/31/2019 12:18 PM Report E-Signed By: Moe Goode MD at 03/31/2019 12:25 PM WSN:[id number] PATIENT NAME: Vivienne Barajas : 1930 MR: [id number] V: [id number] EXAM DATE: ORDERING PHYSICIAN: PERLITA YOU TECHNOLOGIST: Location: [facility] Patient: Vivienne Barajas : 1930 Visit/Account:[id number] Date of Sevice: 03/31/2019 CHEST SINGLE AP HISTORY: Left hip pain. COMPARISON: September 11, 2017. FINDINGS: Cardiomediastinal contours: The heart size is normal. Lungs and pleura: There is new parietal density in the left lung base with elevation of left hemidiaphragm. The findings are suspicious for atelectasis and/or infiltrate. Bones/soft tissues: There are no findings of a fracture. IMPRESSION: 1. New parenchymal density in the left lung base that obscures the left hemidiaphragm and resultant volume loss. The findings are worrisome for atelectasis and/or infiltrate. ED Course/Re-evaluation ED Course Patient is an 88-year-old female here with complaints of left hip pain status post unwitnessed fall at the retirement. Patient is a poor historian. It turns out that the patient has not stood for many months as she had a previous fracture and then a subsequent fracture after repair. 3 screws are visualized on x-ray imaging of the left hip. No acute fractures were identified. CT imaging of the head and C-spine were unremarkable, c-collar was removed. Urinalysis was concerning for urinary tract infection, urine culture was sent and pending. Chest x-ray was concerning for a left lower lobe lung base infiltrate which in combination with mild hypoxia reported earlier will be covered with antimicrobial therapy. In order to cross cover, patient will be treated with Levaquin for 5 days. Patient was hemodynamically stable at time of discharge. Close PCP follow-up recommended. Return precautions provided. Decision to Disposition Date: Mar 31, 2019 Decision to Disposition Time: 12:52 Depart Departure Latest Vital Signs Vital Signs Date Time Temp Pulse Resp B/P (MAP) Pulse Ox O2 Delivery O2 Flow Rate FiO2 03/31/19 11:38 74 18 111/69 (83) 95 Nasal Cannula 2 03/31/19 10:58 98.0 Impression: Primary Impression: Fall Condition: Improved Disposition: HOME OR SELF-CARE New Scripts Levofloxacin 750 Mg Tab (LEVAQUIN 750 MG TAB) 750 Mg Tablet 750 MG PO QDAY for 4 Days, #4 TAB Prov: PERLITA YOU DO 03/31/19 Patient Instructions: Fall Prevention (ED) Additional Instructions: No acute fractures or intracranial bleeds were identified on x-ray and CT imaging. Please take Levaquin 1 tablet daily for 4 days for treatment of a urinary tract infection and suspected early pneumonia (5 day course, first dose given in ED today). Urine culture is pending. Please follow up closely with your primary care provider in the next 24-48 hours for repeat evaluation and care. Please return promptly if you develop confusion, fevers, chills, inability to keep down food or fluids, worsening pain. PERLITA YOU DO Mar 31, 2019 11:03
[2019-03-31 11:33] LABS: PLATELET COUNT, AUTOMATED 210 K/uL (150-450)
[2019-03-31 11:38] LABS: INR 1.02
[2019-03-31] MEDS ORDERED: HYDROMORPHONE HCL 1 MG/ML SYRINGE IVP ONE (11:45)
[2019-03-31] MEDS ORDERED: KETAMINE HCL-NS 50 MG/5 ML SYR IVP ONE (11:45)
[2019-03-31] MEDS ORDERED: cefTRIAXone(*) 1 GM VIAL 1 GM in WATER STERILE(*) 10 ML VIAL 10 ML IVP ONE (12:05)
[2019-03-31] MEDS ORDERED: NITROFURANTOIN MONO 100 MG PO ONE (12:05)
--- NOTE | 2019-03-31 12:24 | RADIOLOGY IMAGING REPORT ---
FACILITY: [facility] PATIENT NAME: Vivienne Barajas : 1930 MR: [id number] V: [id number] EXAM DATE: ORDERING PHYSICIAN: PERLITA YOU TECHNOLOGIST: Location: [facility] [place], [place] Patient: Vivienne Barajas : 1930 Visit/Account:[id number] Date of Sevice: 03/31/2019 HIP LEFT, FEMUR LEFT History: Left hip and left femur pain. Patient status post ORIF left transcervical femoral neck frac ture Comparison study: September 11, 2017. Findings: Pelvis and left hip: Comparison the previous study shows that there has been ORIF of a tra nscervical left femoral neck fracture with 3 Seaman pins. Unfortunately the femoral head demonstrat es severe destruction likely related to postoperative ischemic necrosis. The femoral head is virtual ly unidentifiable and there is superior displacement of the left femur. There is diffuse osteopenia. There is osteoarthrosis of the right hip. There are mild degenerative changes of the sacroiliac join ts. 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 IMPRESSION: 1. In this patient with diffuse osteopenia there has been prior ORIF of a transcervical left femoral neck fracture. 2. Unfortunately there has been interval necrosis of the left femoral head following ORIF. The femo ral head is impossible to identify and surgical screws fill the left acetabular joint space. There i s superior elevation of the left femur. 3. Osteoarthrosis of the right hip. Report Dictated By: Eric Jarvis MD at 03/31/2019 12:12 PM Report E-Signed By: Eric Jarvis MD at 03/31/2019 12:15 PM WSN:[id number]
--- NOTE | 2019-03-31 12:24 | RADIOLOGY IMAGING REPORT ---
FACILITY: [facility] [place] PATIENT NAME: Vivienne Barajas : 1930 MR: [id number] V: [id number] EXAM DATE: ORDERING PHYSICIAN: PERLITA YOU TECHNOLOGIST: Location: [facility] Patient: Vivienne Barajas : 1930 Visit/Account:[id number] Date of Sevice: 03/31/2019 HIP LEFT, FEMUR LEFT History: Left hip and left femur pain. Patient status post ORIF left transcervical femoral neck frac ture Comparison study: September 11, 2017. Findings: Pelvis and left hip: Comparison the previous study shows that there has been ORIF of a tra nscervical left femoral neck fracture with 3 Seaman pins. Unfortunately the femoral head demonstrat es severe destruction likely related to postoperative ischemic necrosis. The femoral head is virtual ly unidentifiable and there is superior displacement of the left femur. There is diffuse osteopenia. There is osteoarthrosis of the right hip. There are mild degenerative changes of the sacroiliac join ts. 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 IMPRESSION: 1. In this patient with diffuse osteopenia there has been prior ORIF of a transcervical left femoral neck fracture. 2. Unfortunately there has been interval necrosis of the left femoral head following ORIF. The femo ral head is impossible to identify and surgical screws fill the left acetabular joint space. There i s superior elevation of the left femur. 3. Osteoarthrosis of the right hip. Report Dictated By: Eric Jarvis MD at 03/31/2019 12:12 PM Report E-Signed By: Eric Jarvis MD at 03/31/2019 12:15 PM WSN:[id number]
--- NOTE | 2019-03-31 12:25 | RADIOLOGY IMAGING REPORT ---
[place] [facility] [place] NAME: Vivienne Barajas : 1930 MR: [id number] V: [id number] EXAM DATE: ORDERING PHYSICIAN: PERLITA YOU TECHNOLOGIST: Location: [facility] [place] Patient: Vivienne Baraajs : 1930 Visit/Account:[id number] Date of Sevice: 03/31/2019 CHEST SINGLE AP HISTORY: Left hip pain. COMPARISON: September 11, 2017. FINDINGS: Cardiomediastinal contours: The heart size is normal. Lungs and pleura: There is new parietal density in the left lung base with elevation of left hemidiap hragm. The findings are suspicious for atelectasis and/or infiltrate. Bones/soft tissues: There are no findings of a fracture. IMPRESSION: 1. New parenchymal density in the left lung base that obscures the left hemidiaphragm and resultant volume loss. The findings are worrisome for atelectasis and/or infiltrate. Report Dictated By: Eric Jarvis MD at 03/31/2019 12:15 PM Report E-Signed By: Eric Jarvis MD at 03/31/2019 12:16 PM WSN:[id number]
--- NOTE | 2019-03-31 12:26 | RADIOLOGY IMAGING REPORT ---
[place] [facility] [place] NAME: Vivienne Barajas : 1930 MR: [id number] V: [id number] EXAM DATE: ORDERING PHYSICIAN: PERLITA YOU TECHNOLOGIST: Location: [facility] [place] Patient: Vivienne Barajas : 1930 Visit/Account:[id number] Date of Sevice: 03/31/2019 EXAMINATION: Head CT without intravenous contrast HISTORY: Trauma. Patient unable to describe trauma. COMPARISON: None. TECHNIQUE: Contiguous axial images were obtained from the skull base to the vertex without intraven ous contrast. Sagittal and coronal reformatted images are also submitted. One of the following dose optimization techniques was utilized in the performance of this exam: Autom ated exposure control; adjustment of the mA and/or kV according to the patient's size; or use of an i terative reconstruction technique. Specific details can be referenced in the facility's radiology C T exam operational policy. FINDINGS: Brain and intracranial structures: Mild cerebral atrophy with concordant sulcal and ventricular prom inence. The basal cisterns are patent. Aguirre-white matter differentiation is maintained. Mild patchy h ypoattenuation in the white matter. No midline shift, acute hemorrhage, acute infarct, or mass. Vessels: Calcified plaque of the carotid siphons. Calvarium / scalp: Negative. No acute fracture. Skull base / visualized face: Leftward deviation of the nasal septum. Visualized sinuses / orbits: The lenses have been replaced. IMPRESSION: No acute intracranial abnormality. Mild patchy hypoattenuation in the white matter, probably chronic small vessel ischemic changes. Report Dictated By: Moe Goode MD at 03/31/2019 12:11 PM Report E-Signed By: Moe Goode MD at 03/31/2019 12:18 PM WSN:[id number]
--- NOTE | 2019-03-31 12:35 | RADIOLOGY IMAGING REPORT ---
FACILITY: [facility] - [place] PATIENT NAME: Vivienne Barajas : 1930 MR: [id number] V: [id number] EXAM DATE: ORDERING PHYSICIAN: PERLITA YOU TECHNOLOGIST: Location: [facility] [place] Patient: Vivienne Barajas : 1930 Visit/Account:[id number] Date of Sevice: 03/31/2019 EXAMINATION: CT Cervical spine without intravenous contrast HISTORY: Trauma. Patient unable to describe trauma. COMPARISON: None. TECHNIQUE: Axial images were obtained from the skull base through the upper thoracic spine without I V contrast administration. Coronal and sagittal reformatted images were obtained from [facility]. One of the following dose optimization techniques was utilized in the performance of this exam: Autom ated exposure control; adjustment of the mA and/or kV according to the patient's size; or use of an i terative reconstruction technique. Specific details can be referenced in the facility's radiology C T exam operational policy. FINDINGS: Alignment: Slight anterolisthesis of C2 on C3, likely on a degenerative basis. Straightening of the c ervical spine. Cranio-cervical junction: Negative. Vertebral bodies: The bones are diffusely osteopenic. No evidence of acute fracture. Posterior elements: Multilevel facet degenerative changes. No acute fracture. Hardware: None. Disc Spaces: Moderate multilevel disc degenerative changes. Soft tissues: No significant paraspinal soft tissue swelling. Calcified plaque of the carotid arterie s. Visualized upper chest: Negative. IMPRESSION: No acute fracture of the cervical spine. Moderate multilevel cervical spondylosis. Osteopenia. Report Dictated By: Moe Goode MD at 03/31/2019 12:18 PM Report E-Signed By: Moe Goode MD at 03/31/2019 12:25 PM WSN:[id number]
[2019-03-31] MEDS ORDERED: NITR-105 PO (12:39)
[2019-03-31] MEDS ORDERED: LEVO750T44 PO (12:51)
[2019-03-31] MEDS ORDERED: LEVOFLOXACIN 750 MG TAB PO ONE (12:55)
[2019-03-31 13:17] VITALS: BP 136/80
== END 2019-03-31 13:38 | disposition home or self-care (01) ==
LOC: ER 11:06
DX: M25.552 Pain in left hip (principal); W19.XXXA Unspecified fall, initial encounter
CPT/HCPCS: 70450; 71045; 72125; 73502; 73552; 81001; 83690; 85025; 85610; 85730; 87077; 87088; 99284; A9270; L0172; 82040; 82247; 82310; 82374; 82435; 82565; 82947; 84075; 84132; 84155; 84295; 84450; 84460; 84520

== ENCOUNTER → 2019-03-31 | Outpatient (CLI) | payer MEDICARE, BC, MEDICAID ==
[2017-09-12 10:39] VITALS: BMI 20.6
[~2019-03-31] MED LIST changes: +LEVO750T44 PO; +NITR-105 PO
== END ==
LOC: AMB 10:27
PROVIDERS: ATTEND Nurse Practitioner
DX: M25.552 Pain in left hip (principal); M21.952 Unspecified acquired deformity of left thigh; W19.XXXA Unspecified fall, initial encounter
CPT/HCPCS: A0425; A0429

== ENCOUNTER → 2019-03-31 | Outpatient (CLI) | payer MEDICARE, BC, MEDICAID ==
[2017-09-12 10:39] VITALS: BMI 20.6
== END ==
LOC: AMB 13:15
PROVIDERS: ATTEND Nurse Practitioner
DX: Z74.01 Bed confinement status (principal)
CPT/HCPCS: A0425; A0428